=== PATIENT | male | born 1930 | race Caucasian/White ===

== ENCOUNTER 2020-02-05 14:44 | Inpatient (IN) | payer MEDICARE, OTHER, SELFPAY ==
[~2020-02-05] VITALS: Ht 180.3 cm; Wt 83.5 kg
--- NOTE | 2020-02-05 14:46 | NUR ---
BIBA TAKEN TO BED 1
--- NOTE | 2020-02-05 14:50 | NUR ---
BIBA FROM HOME C/O ALOC AND GENERALIZED WEAKNESS. PER GRANDSON, PT IS ALERT TO HIMSELF AND FAMILY, IS UNAWARE OF SURROUNDINGS AND IS GENERALLY CONFUSED. PT HAS WEAKNESS TO ARMS AND LEGS-UNABLE TO KEEP EXTREMITIES LIFTED FROM BED. GRANDSON STATES THAT PT HAD EPISODE OF INCONTINENCE WHILE AT HOME AND WAS UNABLE TO STAND FROM COUCH. PT ALERT TO VERBAL RESPONSE. PUPILS RESPONSIVE. ABDOMEN LARGE, BOWEL SOUNDS ACTIVE. PT RR 35 UPON ER ARRIVAL. PT ON 2 L NC AT 97% PMH- HTN, DM
--- NOTE | 2020-02-05 14:51 | NUR ---
PER GRANDSON, PT IS USUALLY AMBULATES INDEPENDENTLY, IS ABLE TO USE THE RESTROOM INDEPENDENTLY, AND IS A0X4
[2020-02-05 14:55] VITALS: BP 142/82
--- NOTE | 2020-02-05 15:00 | NUR ---
ACCU CHECK 173
[2020-02-05] MEDS ORDERED: NACL 0.9% 1,000 ML IV SCH (15:01)
[2020-02-05] MEDS ORDERED: cefTRIAXone 1,000 MG in DEXT 5% MINI-BAG PLUS 50 ML IV ONE (15:05)
--- NOTE | 2020-02-05 15:05 | NUR ---
labs drawn bedside, blood cultures collected
--- NOTE | 2020-02-05 15:35 | NUR ---
xray at bedside
--- NOTE | 2020-02-05 15:36 | NUR ---
# 14 FR Urinary catheter inserted utilizing sterile technique. Immediate return of 100 ml yellow urine noted. Urine sample collected and sent to lab. Pt tolerated procedure well.
[2020-02-05] MEDS ORDERED: cefTRIAXone 1,000 MG VIAL ONE (15:38)
[2020-02-05] MEDS ORDERED: SITA100T8 PO (15:46)
[2020-02-05] MEDS ORDERED: ABIR250T PO (15:46)
[2020-02-05] MEDS ORDERED: METF1000 PO (15:46)
[2020-02-05 15:47] LABS: BASOPHILS % (AUTO) 0.7 % (0.0-2.0); EOSINOPHILS % (AUTO) 0.1 % (0.0-4.0); HEMATOCRIT 39.1 % (36-52); HEMOGLOBIN 13.4 g/dL (12.0-18.0); LYMPHOCYTES # (AUTO) 0.3 K/uL (2.0-11.5); LYMPHOCYTES % (AUTO) 6.8 % (20.5-51.1); MEAN CORPUSCULAR HEMOGLOBIN 33 pg (27-31); MEAN CORPUSCULAR HGB CONC 34 g/dL (33-37); MONOCYTES # (AUTO) 0.9 K/uL (0.8-1.0); MONOCYTES % (AUTO) 18.6 % (1.7-9.3); NEUTROPHILS # (AUTO) 3.7 K/uL (1.8-7.7); NEUTROPHILS % (AUTO) 73.8 % (42.2-75.2); PLATELET COUNT (AUTO) 118 K/uL (140-450); RED BLOOD CELL COUNT(AUTO) 4.08 MIL/uL (4.20-6.10); RED CELL DISTRIBUTION WIDTH 13.7 % (11.6-13.7)
--- NOTE | 2020-02-05 15:50 | NUR ---
NACL BOLUS AND ROCPEHIN STARTED
[2020-02-05 16:02] LABS: ALBUMIN 3.3 g/dL (3.4-5.0); ANION GAP 14.4 (8-16); ASPARTATE AMINOTRANSFERASE 25 U/L (15-37); CARBON DIOXIDE 24.3 mmol/L (21-32); CHLORIDE 100 mmol/L (98-107); CREATININE 1.7 mg/dL (0.6-1.3); GLUCOSE 182 mg/dL (74-106); POTASSIUM 3.7 mmol/L (3.5-5.1); SODIUM SERUM 135 mmol/L (136-145); TOTAL BILIRUBIN 0.7 mg/dL (0.0-1.0); UREA NITROGEN, BLOOD 13 mg/dL (7-18)
--- NOTE | 2020-02-05 16:06 | NUR ---
NADR, PAIN O/10
--- NOTE | 2020-02-05 16:11 | NUR ---
LACTIC ACID 3.1, REPORTED TO DR MAGANA
[2020-02-05 16:29] LABS: APPEARANCE,URINE CLEAR (CLEAR); BILIRUBIN,URINE NEGATIVE (NEGATIVE); BLOOD, URINE NEGATIVE (NEGATIVE); COLOR,URINE YELLOW (YELLOW); LEUKOCYTE ESTERASE ,URINE NEGATIVE (NEGATIVE); NITRITE, URINE NEGATIVE (NEGATIVE); UGLUCOSE NEGATIVE (NEGATIVE)
--- NOTE | 2020-02-05 17:20 | NUR ---
PT RETURNED FROM CT VIA [facility]
--- NOTE | 2020-02-05 17:20 | NUR ---
ORAL TEMP 99.1
--- NOTE | 2020-02-05 17:21 | NUR ---
RR 25
--- NOTE | 2020-02-05 17:30 | NUR ---
SPOKE WITH PTS DAUGHTER DAVID [phone] AND GAVE UPDATE REGARDING PENDING HEAD CT AND ADMISSION
--- NOTE | 2020-02-05 17:39 | NUR ---
HELD THE PHONE TO PTS EAR WHILE HIS DAUGHTER SPOKE WITH HIM. PER DAUGHTER, HER FATHER IS SLIGHTLY CONFUSED AND IS NOT RESPONDING TO ALL OF HER QUESTIONS APPRORIATELY.
[2020-02-05] MEDS ORDERED: HYDROcodone/APAP 5/325 MG 1 TAB TAB PO PRN (17:40)
[2020-02-05] MEDS ORDERED: ACETAMINOPHEN 325 MG TAB PO PRN (17:40)
[2020-02-05] MEDS ORDERED: MORPHINE SULFATE 2 MG/ML SYR IVP PRN (17:40)
[2020-02-05] MEDS ORDERED: DOCUSATE SODIUM 100 MG GELCAP PO PRN (17:40)
[2020-02-05] MEDS ORDERED: ONDANSETRON 4 MG/2 ML VIAL IM/IVP PRN (17:40)
--- NOTE | 2020-02-05 18:15 | NUR ---
RECEIVED REPORT FROM ER NURSE WAQAS VIA SHU. PT TRANSFERRED TO [facility] BED, PT TOLERATED WELL, PT IS AAOX2, NO DISTRESS NOTED,IV SITES INTACT AND PATENT, SKIN INTACT, ORIENTED TO PT ROOM AND CALL LIGHT.SAFETY MEASURES IN PLACE, CALL LIGHT WITHIN REACH. WILL CONTINUE TO MONITOR.
--- NOTE | 2020-02-05 18:15 | NUR ---
Patient will be admitted to care of [facility]. Admited to TELE. Will go to room 129A. Belongings list completed. Report to VALENTE ARMENDARIZ.
--- NOTE | 2020-02-05 18:20 | NUR ---
Diego thompson in [facility] - 02/05/20 at 1821 by MEGAN SPOKE WITH DAVID, PTS DAUGHTER, AND INFORMED HER THAT HE WILL BE STAYING OVERNIGHT IN ROOM 129A
--- NOTE | 2020-02-05 18:22 | NUR ---
SPOKE WITH DAVID, PTS DAUGHTER, AND INFORMED HER THAT PT WILL BE STAYING OVERNIGHT IN ROOM 129A
--- NOTE | 2020-02-05 18:23 | NUR ---
SWAB PT FOR MRSA NARES, LABELLED AND SUBMITTED TO LAB FOR TESTING. VITAL SIGNS TAKEN AND PT IS STABLE. WILL CONTINUE TO MONITOR.
[2020-02-05] MEDS ORDERED: DEXTROSE 50% 50 ML SYR IVP PRN (19:10)
[2020-02-05] MEDS ORDERED: INSULIN LISPRO SLIDING SCALE 100 UNITS/ML VIAL SUBQ PRN (19:10)
--- NOTE | 2020-02-05 19:17 | NUR ---
RECEIVED PATIENT IN STABLE CONDITION FROM AM SHIFT FOR CONTINUITY OF CARE. PATIENT AAOX1-2, ABLE TO MAKE SIMPLE NEEDS KNOWN. RESPIRATIONS EVEN, UNLABORED. SKIN WARM, DRY AND INTACT. IV SITE TO RIGHT AC 20G PATENT/INTACT, INFUSING FLUIDS WELL. NO C/O PAIN. NO S/S ACUTE DISTRESS. PATIENT ORIENTED TO STAFF, ROOM AND CALL LIGHT. SAFETY PRECAUTIONS IN PLACE. ISOLATION PRECAUTIONS IN PLACE. CALL LIGHT IN REACH. WILL CONTINUE TO MONITOR.
--- NOTE | 2020-02-05 19:17 | NUR ---
ENDORSED PT TO NIGHT NURSE FOR CONTINUITY OF CARE. PT IS STABLE
[2020-02-05] MEDS: NACL 0.9% 1,000 ML IV SCH (19:30)
[2020-02-05 20:00] VITALS: BP 146/69
[2020-02-05 20:24] LABS: PROTHROMBIN TIME 11.3 secs (10.8-13.4)
[2020-02-05 20:27] LABS: MAGNESIUM 2.1 mg/dL (1.8-2.4)
[2020-02-05 20:28] LABS: PHOSPHORUS 2.9 mg/dL (2.5-4.9); THYROID STIMULATING HORMONE 0.34 uIU/mL (0.34-3.74)
[2020-02-05 20:45] LABS: LACTATE DEHYDROGENASE 230 U/L (85-227)
[2020-02-05] MEDS: BLOOD GLUCOSE MONITORING 1 DEV DEV FS SCH (21:12)
--- NOTE | 2020-02-05 21:15 | NUR ---
PATIENT ASLEEP AND IN STABLE CONDITION. REPOSITIONED FOR COMFORT. SAFETY PRECAUTIONS IN PLACE. CALL LIGHT IN REACH.
--- NOTE | 2020-02-05 23:20 | NUR ---
INCONTINENT CARE RENDERED WITH ELECTRONIC PAGINATION SYSTEM OPERATOR AT BEDSIDE. REPOSITIONED FOR COMFORT. NO C/O PAIN. NO S/S ACUTE DISTRESS. SAFETY PRECAUTIONS IN PLACE. ISOLATION PRECAUTIONS IN PLACE. CALL LIGHT WITHIN REACH.
[2020-02-06] VITALS: BP 132/72
--- NOTE | 2020-02-06 01:25 | NUR ---
MADE ROUNDS. PATIENT ASLEEP. NO S/S ACUTE DISTRESS. CALL LIGHT IN REACH. FREQUENT ROUNDS MADE BY STAFF.
--- NOTE | 2020-02-06 03:00 | NUR ---
PATIENT REPOSITIONED IN BED. INCONTINENT CARE RENDERED WITH SENIOR SOFTWARE DEVELOPMENT ENGINEER. CALL LIGHT WITHIN REACH. SAFETY PRECAUTIONS IN PLACE.
[2020-02-06 04:00] VITALS: BP 136/80
[2020-02-06] MEDS: NACL 0.9% 1,000 ML IV SCH (04:15)
--- NOTE | 2020-02-06 05:30 | NUR ---
SPOKE TO DAUGHTER DAVID ON THE PHONE AND GAVE HER AN UPDATE ON THE STATUS OF PATIENT. SHE SAID SHE WILL CALL IN THE AFTERNOON AFTER THE DOCTOR MAKES HIS ROUNDS. PATIENT IS CURRENTLY SLEEP AND IN STABLE CONDITION. NO C/O PAIN. NO S/S ACUTE DISTRESS. CALL LIGHT WITHIN REACH. SAFETY PRECAUTIONS IN PLACE.
[2020-02-06 06:26] LABS: BASOPHILS # (AUTO) 0.1 K/uL (0.00-0.22); BASOPHILS % (AUTO) 1.7 % (0.0-2.0); EOSINOPHILS % (AUTO) 0.1 % (0.0-4.0); HEMATOCRIT 36.7 % (36-52); HEMOGLOBIN 12.6 g/dL (12.0-18.0); LYMPHOCYTES # (AUTO) 1.2 K/uL (2.0-11.5); LYMPHOCYTES % (AUTO) 32.9 % (20.5-51.1); MEAN CORPUSCULAR HEMOGLOBIN 33 pg (27-31); MEAN CORPUSCULAR HGB CONC 34 g/dL (33-37); MEAN CORPUSCULAR VOLUME 95.9 fL (80-94); MONOCYTES # (AUTO) 0.9 K/uL (0.8-1.0); MONOCYTES % (AUTO) 23.6 % (1.7-9.3); NEUTROPHILS # (AUTO) 1.6 K/uL (1.8-7.7); NEUTROPHILS % (AUTO) 41.7 % (42.2-75.2); PLATELET COUNT (AUTO) 93 K/uL (140-450); RED BLOOD CELL COUNT(AUTO) 3.83 MIL/uL (4.20-6.10); RED CELL DISTRIBUTION WIDTH 13.8 % (11.6-13.7); WHITE BLOOD COUNT (AUTO) 3.7 K/uL (4.8-10.8)
[2020-02-06] MEDS: BLOOD GLUCOSE MONITORING 1 DEV DEV FS SCH ×4 (06:37→20:56)
[2020-02-06 07:00] LABS: ALBUMIN 2.8 g/dL (3.4-5.0); ANION GAP 16.8 (8-16); ASPARTATE AMINOTRANSFERASE 30 U/L (15-37); CARBON DIOXIDE 20.4 mmol/L (21-32); CHLORIDE 102 mmol/L (98-107); CREATININE 1.7 mg/dL (0.6-1.3); GLUCOSE 145 mg/dL (74-106); LACTATE DEHYDROGENASE 252 U/L (85-227); PHOSPHORUS 3.3 mg/dL (2.5-4.9); POTASSIUM 3.2 mmol/L (3.5-5.1); SODIUM SERUM 136 mmol/L (136-145); TOTAL BILIRUBIN 0.6 mg/dL (0.0-1.0); UREA NITROGEN, BLOOD 10 mg/dL (7-18)
--- NOTE | 2020-02-06 07:30 | NUR ---
RECEIVED PT FROM COMMERCIAL REAL ESTATE PARALEGAL NURSEARI, PT IS ASLEEP AND LYING ON THE BED WITH SIDE RAISL UP AND CALL LIGHT WITHIN REACH, PT IS ON DROPLET ISOLATION, IV LINE ON THE RT AC G. 20 WITH NS INFUSING AT 100ML/HR, INTACT, ON ROOM AIR, NO SIGN OF DISTRESS NOTED AND WILL MONITOR PT.
[2020-02-06 07:35] LABS: CHOL/HDL RATIO 3.6 (1-4.5); HDL CHOLESTEROL 29 mg/dL (40-60); LDL (CALC) 61 mg/dL (60-100); TRIGLYCERIDES 68 mg/dL (30-150)
[2020-02-06 08:00] VITALS: BP 130/77
[2020-02-06] MEDS: ENOXAPARIN 60 MG/0.6 ML SYR SUBQ SCH ×2 (08:16→20:56)
[2020-02-06] MEDS: metFORMIN 500 MG TAB PO SCH ×2 (08:18→16:56)
--- NOTE | 2020-02-06 08:18 | NUR ---
PT WAS GIVEN THE SCHEDULED AM MEDICATIONS, CRUSHED AND BEDSIDE SWALLOW EVALUATION DONE USING APPLE SAUCE AND WATER THROUGH A STRAW AND PT TOLERATED IT. WILL MONITOR PT.
[2020-02-06] MEDS ORDERED: LOVENOX 1MG/KG Q12H SUBQ SCH (09:00)
--- NOTE | 2020-02-06 10:02 | NUR ---
DATA MINING ANALYST NOTE: Basic Screen: Yes High Risk DC Screen Stella: DAVID MANUEL [place] Relationship: DAUGHTER Pre-Admission Living Arrangements: Lives with Other Prior ADL Independent Current Home Health Name/Tel: N/A Current DME/02 Name/Tel: N/A Current Hospice Name/Tel: N/A Current Dialysis Name/Tel: N/A Healthcare Decision Maker: Patient Advance Directive No Physician Orders for Life Sustaining Treatment Form No Patient/Family Have Educational Needs No Discipline: Case Mgt/Social Svcs Tentative Discharge Plan/Destination: No Needs Identified Will require assistance post discharge: No Referred to Conveyor Belt Repairer: No Tentative Discharge Plan Summary: PATIENT IS AN 89-YEAR-OLD MALE ADMITTED FOR ALOC AND COVID R/O. PATIENT HAS PMHX OF DM, PROSTATE CANCER, AND DIET CONTROLLED HYPERTENSION. PATIENT WAS ADMITTED FROM HOME WHERE HE LIVES WITH HIS FAMILY. SW CONTACTED DAVID MANUEL [phone] TO VERIFY DEMOGRAPHICS. PER DAVID, PATIENT IS COMPLETELY INDEPENDENT WITH ALL ADLS AND IS ALERT/ORIENTED AT BASELINE. DAVID REPORTS NO HISTORY OF MENTAL HEALTH AND SUBSTANCE ABUSE. TENTATIVE DISCHARGE PLAN IS FOR PATIENT IS TO RETURN HOME. NO FURTHER NEEDS IDENTIFIED. Signature: RE WATERMAN Date: Feb 06, 2020 Time: 10:01
--- NOTE | 2020-02-06 10:43 | NUR ---
PATIENT HAS BEEN SCREENED AND CATEGORIZED MODERATE NUTRITION RISK. PATIENT WILL BE SEEN WITHIN 3-5 DAYS OF ADMISSION. 02/08/20 02/10/[address]
--- NOTE | 2020-02-06 11:30 | NUR ---
BLOOD GLUCOSE CHECK DONE TO PT NOW AND RESULT IS 126 AND NO INSULIN COVERAGE NEEDED.
[2020-02-06 12:00] VITALS: BP 158/94
--- NOTE | 2020-02-06 12:30 | NUR ---
DISCHARGE PLANNING: THIS IS AN 89 Y/O MALE PATIENT FROM HOME, WHO CAM IN DUE TO GENERALIZED WEAKNESS WITH ALOC. PAST MEDICAL HISTORY INCLUDE DM, HTN, PROSTATE CA. INITIAL DIAGNOSIS OF ALOC. CURRENT LABS INCLUDE WBC 3.7, H/H 12.6/36.7, NA/K 136/3.2, BUN/CREA 10/1.7 AND D DIMER 3100. COVID TEST AND INF A AND B NEGATIVE. ON ROCEPHIN. MRSA NARES AND BLOOD CS PENDING. NO CONSULT AT THIS TIME. FOR SWALLOW EVAL. DC PLAN BACK TO HOME ONCE STABLE. Addendum: 02/07/20 at 1051 by Lynn Turcios TENTATIVE DC PLAN IS FOR TOMORROW WITH H/H FOR PT-PENDING PT EVALUATION. SPOKE TO PATIENT'S DAUGHTER DAVID MANUEL AT [phone] TO DISCUSS DC PLAN AND IS IN AGREEMENT. WHEN ASKED IF SHE HAS ANY PREFERENCE, SHE ANSWERED NO. SHE REQUESTED TO HAVE DR SHERIDAN CALL HER FOR UPDATES. PER DR. LEE, DR. SHERIDAN IS TALKING TO DR. GREEN AT THE MOMENT AND WILL HAVE HER CALL ME BACK. Addendum: 02/07/20 at 1146 by Lynn Turcios CM SPOKE TO JAYDE PATIENT COORDINATOR AT [facility]. SHE STATED FOR [facility], IT HAS TO BE FROM [facility]. CONTACTED KUMAR BECERRA OF [employer] AT [phone], NO ANSWER. PER VOICEMAIL SHE WILL BE ON VACATION FROM FEB 04 AND WILL BE BACK Jan AND TO CALL [phone] IF ASSISTANCE NEEDED FOR DISCHARGE PLANNING. CONTACTED THE PROVIDED NUMBER, ABLE TO SPEAK TO SYDNIE. INFORMED HER OF THE TENTATIVE DC PLAN. SHE STATED SHE WILL SEND ME OVER THEIR LIST OF CONTRACTED AGENCIES AND ONCE THEIR IS AN ACCEPTING TO LET THEM KNOW AND WILL PROVIDE AN AUTH. WILL AWAIT FOR THE FAX. Addendum: 02/07/20 at 1556 by Lynn Turcios CM [id number]: CONTACTED [facility] AT [phone], ABLE TO SPEAK TO, PROVIDED ME WITH THE FAX NUMBER. REFERRAL SENT TO [phone]. WILL FOLLOW UP. CONTACTED [facility] TO FOLLOW UP REFERRAL, ABLE TO SPEAK TO SANG NOYOLA. SHE CONFIRMED THAT THEY RECEIVED THE REFERRAL AND THEIR GENERAL PURCHASING AGENT IS STILL REVIEWING IT. SHE STATED SHE WILL CALL ME BACK IN 10-15 MINS. Addendum: 02/07/20 at 1626 by Lynn Turcios CM RECEIVED A CALL FROM [facility], STATING THAT THEY ARE NOT ABLE TO ACCEPT PATIENT DUE TO THEY DO NOT HAVE A NURSE AT THIS TIME. CONTACTED [employer] AT [phone], ABLE TO SPEAK TO JAYDE. SHE PROVIDED ME WITH THEIR FAX NUMBER [phone] TO SEND REFERRAL. REFERRAL SENT. WILL FOLLOW UP. REFERRAL SENT TO [facility]. WILL FOLLOW UP. Addendum: 02/08/20 at 1016 by Lynn Turcios CM RECEIVED A CALL FROM JAYDE OF [employer] REQUESTING 2 VISITS FOR INSURANCE TO APPROVE. CONTACTED ABEL ARREOLA, ABLE TO SPEAK TO SYDNIE, SHE STATED THEY WILL APPROVE 2 EVALS AND [address] [facility] MADE AWARE, AND OK WITH IT. Addendum: 02/08/20 at 1324 by Lynn Turcios CM CONTACTED JAS[facility] AT [phone], ABLE TO SPEAK TO LISANDRO, SHE STATED TO CALL THEM BACK IN AN HOUR FOR THE AUTH TO GENERATE. WILL FOLLOW UP. Addendum: 02/08/20 at 1402 by Lynn Turcios CM RECEIVED A CALL FROM [facility], STATING THAT SINCE THE PATIENT IS [employer] THEY ARE NOT ABLE TO PROVIDE AUTH AND NEED TO FAX REQUEST TO [phone] AND TO CALL [phone] OPT 4 OPT 4, OPT 2, OPT 2 AND OPT 2. CONTACTED THE PROVIDED NUMBER AND POSSIBLE COVID. CURRENT LABS INCLUDE WBC 14.1, H/H 8.2/25.2, NA/K 141/3.8, BUN/CREA 22/1.2, TROP 0.102, ALB 1.9, D DIMER >5000. COVID TEST PENDING. ETT TO VENT, FIO2 50%, O2 SAT 100%. SEDATED WITH PROPOFOL. ON LEVOPHED DRIP. ID AND PULMO/CRITICAL CARE CONSULTS IN PLACE. DC PLAN PENDING ON PATIENT'S RESPONSE TO TREATMENT. Addendum: 02/08/20 at 1411 by Lynn Turcios CM PREVIOUS DOCS WRONG ENTRY: RECEIVED A CALL FROM [facility], STATING THAT SINCE THE PATIENT IS [employer] THEY ARE NOT ABLE TO PROVIDE AUTH AND NEED TO FAX REQUEST TO [phone] AND TO CALL [phone] OPT 4 OPT 4, OPT 2, OPT 2 AND OPT 2. CONTACTED THE PROVIDED NUMBER, CALL GOT CUT OFF AFTER 28 MINS ON HOLD TRYING TO CONNECT TO A LIVE AGENT. Addendum: 02/08/20 at 1656 by Lynn Turcios CM LATE ENTRY: CONTACTED [facility] AGAIN, ON HOLD FOR 30 MINS TO CONNECT TO A LIVE AGENT AND CALL GOT CUT OFF. CONTACTED SYDNIE [facility]NE [facility] TO CHECK IF THEY HAVE ANY OTHER NUMBER TO CALL. SHE STATED THAT IS THE ONLY NUMBER THEY HAVE HOWEVER SHE WILL TRY TO CONNECT ME. PER SYDNIE SHE IS UNABLE TO TRANSFER THE CALL AND WILL SEND THEM AN EMAIL WITH MY CONTACT INFO. 8140: RECEIVED A CALL BACK FROM RAYA LA AUTH COORDINATOR AT [facility] [employer], TO CONFIRM THAT THEY RECEIVED THE ORDER AND REQUEST FOR HOME HEALTH. SHE STATED SHE WILL SUBMIT THE REQUEST, AND THEIR PROCESS WILL TAKE UP TO 24 HOURS. SHE STATED THAT SHE WILL CALL ME BACK WITH THE AUTH. WILL FOLLOW UP. Addendum: 02/09/20 at 0906 by Lynn Turcios CM RECEIVED A VOICE MESSAGE FROM SYDNIE [facility] TO PROVIDE AUTH [phone] FOR [facility]. SHE STATED THAT SHE PROVIDED IT TO JAYDE [facility]. RECEIVED A VOICE MESSAGE FROM JAYDE [facility], STATING THAT THEY RECEIVED THE AUTH FROM [employer].
--- NOTE | 2020-02-06 13:50 | NUR ---
SWALLOW EVALUATION IS BEING DONE TO PT NOW.
[2020-02-06] MEDS ORDERED: POTASSIUM CHLORIDE 10 MEQ TABER PO SCH (14:00)
--- NOTE | 2020-02-06 14:04 | NUR ---
ST CLARIFICATION NOTES PT'S ORAL-PHARYNGEAL SWALLOW APPEARS WFL C MS/THIN LIQUIDS CUP/STRAW OKAY, INTERMITTENT SUPERVISION BY NSG, TRAY SET-UP. NO FURTHER DYSPHAGIA F/U INDICATED. D/C SKILLED ST SERVICES AT THIS TIME. NSG TO MONITOR AND NOTIFY WIRELESS INTERNET INSTALLER OF CHANGES IN STATUS. RESULTS AND RECOMMENDATIONS D/W PT AND PT'S RNHOLLY. -ISAEL LEE MA, CCC-WIRELESS INTERNET INSTALLER
--- NOTE | 2020-02-06 14:15 | NUR ---
PT WAS ASSISTED TO THE BATHROOM AND HAD A BOWEL MOVEMENT AND ASSISTED BACK TO BED AND MADE COMFORTABLE, NO SIGN OF DISTRESS NOTED AND WILL MONITOR PT.
[2020-02-06] MEDS: DEXT 5% / NACL 0.45% 1,000 ML IV SCH (14:55)
[2020-02-06] MEDS ORDERED: POTASSIUM CHLORIDE 40 MEQ, LIDOCAINE MPF 1% 25 MG in NACL 0.9% 250 ML IV SCH (15:00)
--- NOTE | 2020-02-06 15:01 | NUR ---
PT WAS GIVEN IVPB ROCEPHIN NOW, WILL MONITOR PT.
--- NOTE | 2020-02-06 15:32 | NUR ---
PT WAS GIVEN POTASSIUM RIDER IV NOW FOR K LEVEL OF 3.2, WILL MONITOR PT.
[2020-02-06 16:00] VITALS: BP 127/91
--- NOTE | 2020-02-06 16:22 | NUR ---
PT WAS GIVEN INSULIN 2 UNITS IN THE ABDOMEN FOR THE BLOOD GLUCOSE OF 172, WILL MONITOR PT.
--- NOTE | 2020-02-06 16:57 | NUR ---
PT WAS GIVEN THE SCHEDULED MEDICATION, CRUSHED AND TOLERATED IT. WILL MONITOR PT.
--- NOTE | 2020-02-06 19:30 | NUR ---
RECIEVED PT AAOX1 TO 2 , CAN FOLLOW SIMPLE COMMAND - POOR HISTORIAN - NEEDS RE INFORCEMENT FROM TIME TO TIME , NID - O2 SAT WNL . SAFETY MEASURES IN PLACE - BED ALARM ON - CALL LIGHT WITHIN REACH . REMINDS HIM THE USE OF CALL LIGHT . ON TELE MONITOR . DENIES ANY PAIN AT6 THIS TIME . WILL CONT. TO MONITOR.
[2020-02-06 20:00] VITALS: BP 140/90
--- NOTE | 2020-02-06 22:00 | NUR ---
MADE ROUNDS , NO S/SX OF ACUTE DISTRESS NOTED AT THIS TIME , WILL CONT. TO MONITOR.
[2020-02-07] VITALS: BP 142/92
--- NOTE | 2020-02-07 | NUR ---
MADE ROUNDS , NO COMPLAIN MADE AT THIS TIME , ON TELE MONITOR - WILL CONT. TO MONITOR.
--- NOTE | 2020-02-07 02:00 | NUR ---
SLEEPING - CHEST RISE AND FALL EQUALLY , WILL CONT. TO MONITOR.
[2020-02-07 04:00] VITALS: BP 140/90
--- NOTE | 2020-02-07 04:35 | NUR ---
MADE ROUNDS , NO S/SX OF ACUTE DISTRESS NOTED AT THIS TIME . WILL CONT. TO MONITOR.
[2020-02-07] MEDS: BLOOD GLUCOSE MONITORING 1 DEV DEV FS SCH ×4 (06:00→21:00)
--- NOTE | 2020-02-07 06:00 | NUR ---
MADE ROUNDS , NO COMPLAIN MADE , RESTING ON BED COMFORTABLY .
[2020-02-07 06:11] LABS: BASOPHILS % (AUTO) 0.8 % (0.0-2.0); EOSINOPHILS % (AUTO) 0.6 % (0.0-4.0); HEMATOCRIT 35.8 % (36-52); HEMOGLOBIN 12.3 g/dL (12.0-18.0); LYMPHOCYTES # (AUTO) 1.2 K/uL (2.0-11.5); LYMPHOCYTES % (AUTO) 43.3 % (20.5-51.1); MEAN CORPUSCULAR HEMOGLOBIN 33 pg (27-31); MEAN CORPUSCULAR HGB CONC 35 g/dL (33-37); MEAN CORPUSCULAR VOLUME 96.1 fL (80-94); MONOCYTES # (AUTO) 0.7 K/uL (0.8-1.0); MONOCYTES % (AUTO) 25.5 % (1.7-9.3); NEUTROPHILS # (AUTO) 0.9 K/uL (1.8-7.7); NEUTROPHILS % (AUTO) 29.8 % (42.2-75.2); PLATELET COUNT (AUTO) 75 K/uL (140-450); RED BLOOD CELL COUNT(AUTO) 3.72 MIL/uL (4.20-6.10); RED CELL DISTRIBUTION WIDTH 13.9 % (11.6-13.7); WHITE BLOOD COUNT (AUTO) 2.8 K/uL (4.8-10.8)
[2020-02-07 06:18] LABS: MAGNESIUM 2.1 mg/dL (1.8-2.4); PHOSPHORUS 2.4 mg/dL (2.5-4.9)
[2020-02-07 06:28] LABS: ALBUMIN 2.6 g/dL (3.4-5.0); ANION GAP 10.3 (8-16); ASPARTATE AMINOTRANSFERASE 35 U/L (15-37); CARBON DIOXIDE 26.3 mmol/L (21-32); CHLORIDE 106 mmol/L (98-107); CREATININE 1.2 mg/dL (0.6-1.3); GLUCOSE 109 mg/dL (74-106); LACTATE DEHYDROGENASE 271 U/L (85-227); POTASSIUM 3.6 mmol/L (3.5-5.1); SODIUM SERUM 139 mmol/L (136-145); TOTAL BILIRUBIN 0.5 mg/dL (0.0-1.0); UREA NITROGEN, BLOOD 11 mg/dL (7-18)
--- NOTE | 2020-02-07 07:25 | NUR ---
ENDORSED TO AM SHIFT - PT - STABLE
--- NOTE | 2020-02-07 07:59 | NUR ---
TRANSFER OF CARE FROM GUEST SERVICES MANAGER RN TO DAY SHIFT RN. REPORT RECEIVED FROM KALA BREWSTER. PT IS SITTING UP IN BED EATING BREAKFAST. IV IN RT AC 2OG. IVPB RUNNING D5W 1/2 NS AT 40ML/HR. PT O2 SAT IS 97% ON RA. PT STATED HAD BM LAST NIGHT 02/06/20. SAFETY PRECAUTIONS INITIATED. TODAY'S OBJECTIVE: SAFETY AND INFECTION PREVENTION.
[2020-02-07 08:00] VITALS: BP 141/88
[2020-02-07] MEDS: metFORMIN 500 MG TAB PO SCH ×2 (08:17→16:40)
--- NOTE | 2020-02-07 08:20 | NUR ---
MEDS GIVEN AT THIS TIME. MEDS WERE CRUSHED AND MIXED IN WITH APPLE SAUCE. PT TOLERATED MED PASS WELL.
[2020-02-07] MEDS: ENOXAPARIN 60 MG/0.6 ML SYR SUBQ SCH (08:24)
--- NOTE | 2020-02-07 09:50 | NUR ---
ULTRASOUND VENOUS OF BILATERAL LOWER EXTREMITY IS BEING DONE TO PT NOW.
--- NOTE | 2020-02-07 11:40 | NUR ---
BLOOD GLUCOSE CHECK DONE TO PT AND RESULT IS 98 AND NO INSULIN COVERAGE NEEDED. WILL MONITOR PT.
[2020-02-07 12:00] VITALS: BP 146/98
[2020-02-07] MEDS: DEXT 5% / NACL 0.45% 1,000 ML IV SCH (13:54)
--- NOTE | 2020-02-07 15:09 | NUR ---
PT WAS GIVEN IVPB ROCEPHIN NOW, WILL MONITOR PT.
[2020-02-07 16:00] VITALS: BP 159/85
--- NOTE | 2020-02-07 16:25 | NUR ---
TOLERATED INCENTIVE SPIROMETRY THERAPY WELL WITHOUT INCIDENT ENCOURAGED PATIENT TO US INCENTIVE SPIROMETRY EVERY 1-2 HOURS WHILE AWAKE
--- NOTE | 2020-02-07 16:40 | NUR ---
PT'S BLOOD GLUCOSE WAS CHECKED AND IS 117 AND NO INSULIN COVERAGE NEEDED, ORAL MEDICATION WAS GIVEN , CRUSHED, TOLERATED AND WILL MONITOR PT.
--- NOTE | 2020-02-07 19:13 | NUR ---
EDORSED PT TO [facility] SHIFT NURSE FOR CONTINUITY OF CARE, PT IS STABLE AT THIS TIME.
--- NOTE | 2020-02-07 19:13 | NUR ---
RECEIVED PT AAOX1 TO 2 - NID - O2 SAT WNL . FALL RISK - WILL PUT ON BED ALARM ON . RA , DENIES ANY PAIN . SAFETY MEASURES IN PLACE . CALL LIGHT WITHIN REACH . PLAN OF CARE DISCUSSED BUT POOR UNDERSTANDING DUE TO MENTAL STATUS . IV SITE INTACT AND PATENT . WILL CONT. TO MONITOR.
[2020-02-08] VITALS: BP 152/88
--- NOTE | 2020-02-08 | NUR ---
MADE ROUNDS - NO S/SX OF ACUTE DISTRESS NOTED AT THIS TIME . WILL CONT. TO MONITOR
--- NOTE | 2020-02-08 02:00 | NUR ---
SLEEPING - CHEST RISE AND FALL EQUALLY.
[2020-02-08 04:00] VITALS: BP 134/90
--- NOTE | 2020-02-08 04:00 | NUR ---
MADE ROUNDS , NO S/SX OF ACUTE DISTRESS NOTED AT THIS TIME.
[2020-02-08 05:59] LABS: BASOPHILS % (AUTO) 0.3 % (0.0-2.0); EOSINOPHILS % (AUTO) 0.4 % (0.0-4.0); HEMATOCRIT 37.7 % (36-52); HEMOGLOBIN 12.8 g/dL (12.0-18.0); LYMPHOCYTES # (AUTO) 1.9 K/uL (2.0-11.5); LYMPHOCYTES % (AUTO) 46.2 % (20.5-51.1); MEAN CORPUSCULAR HEMOGLOBIN 33 pg (27-31); MEAN CORPUSCULAR HGB CONC 34 g/dL (33-37); MEAN CORPUSCULAR VOLUME 96.4 fL (80-94); MONOCYTES % (AUTO) 23.4 % (1.7-9.3); NEUTROPHILS # (AUTO) 1.2 K/uL (1.8-7.7); NEUTROPHILS % (AUTO) 29.7 % (42.2-75.2); PLATELET COUNT (AUTO) 88 K/uL (140-450); RED BLOOD CELL COUNT(AUTO) 3.91 MIL/uL (4.20-6.10); RED CELL DISTRIBUTION WIDTH 13.7 % (11.6-13.7); WHITE BLOOD COUNT (AUTO) 4.2 K/uL (4.8-10.8)
--- NOTE | 2020-02-08 06:00 | NUR ---
MADE ROUNDS , NO COMPLAIN MADE , NO S/SX OF ACUTE DISTRESS NOTED .
[2020-02-08 06:30] LABS: ANION GAP 11.3 (8-16); CARBON DIOXIDE 27.9 mmol/L (21-32); CHLORIDE 105 mmol/L (98-107); CREATININE 1.2 mg/dL (0.6-1.3); GLUCOSE 100 mg/dL (74-106); POTASSIUM 3.2 mmol/L (3.5-5.1); SODIUM SERUM 141 mmol/L (136-145); UREA NITROGEN, BLOOD 10 mg/dL (7-18)
--- NOTE | 2020-02-08 06:40 | NUR ---
ASSESS SL / IV SITE - FLUSH W/ NSS W/ RESISTANCE - PT . WITHDRAW HIS ARM WHEN I'M TRYING TO FLUSH THE SL - WILL ENDORSE - PER AM NURSE YESTERDAY SAID THE PLAN OF CARE IS POSSIBLE HOME TODAY . AND THE DAUGTHER KNOWS HER FATHER POSSIBLE HOME TODAY .
[2020-02-08 06:46] LABS: MAGNESIUM 2.1 mg/dL (1.8-2.4); PHOSPHORUS 2.4 mg/dL (2.5-4.9)
--- NOTE | 2020-02-08 07:25 | NUR ---
RECEIVED REPORT FROM COMBINER OPERATOR NURSE. PT IS CURRENTLY LAYING IN BED ASLEEP WITH NO NO SIGNS OF DISTRESS NOTED. PT IS ALERT ORIENTATED TO PERSON AND PLACE. RESPIRATIONS ARE EVEN AND UNLABORED ON ROOM AIR. SKIN IS INTACT WITH IV PATENT, ASYMPTOMATIC, AND INFUSING PER ORDER. SAFETY MEASURES IN PLACE, BED IS IN LOW SEMI-FOWLERS POSITION, CALL LIGHT WITHIN REACH AND WILL CONTINUE TO MONITOR.
--- NOTE | 2020-02-08 07:25 | NUR ---
ENDORSED TO AM SHIFT - PT - STABLE , WILL ASK TO BRITT IF PT HAVE TO RE INSERT NEW IV - FOR POSSIBLE HOME TODAY . Addendum: 02/08/20 at 0747 by Diana Cisneros RN INFORM AM NURSE - THE RESIDENTS ARE IN CONFERENCE - JUST FOLLOW UP IF FOR RE INSERTION OF IV CANULLA - JUST WAIT THE DISPOSITION OF DR. ALCANTARA AFTER THE DOCTORS' ROUNDS .
[2020-02-08] MEDS: BLOOD GLUCOSE MONITORING 1 DEV DEV FS SCH (07:30)
[2020-02-08 08:00] VITALS: BP 150/88
[2020-02-08] MEDS: metFORMIN 500 MG TAB PO SCH (09:00)
--- NOTE | 2020-02-08 09:08 | NUR ---
ADMINISTERED MEDICATIONS AND PATIENT TOLERATED WELL WITH NO SIGNS OF DISTRESS. BREAKFAST IS AT BEDSIDE. PT STATES THAT HE WANTS TO GO HOME. SAFETY MEASURES IN PLACE AND WILL CONTINUE TO MONITOR.
--- NOTE | 2020-02-08 09:12 | NUR ---
HEPARIN WAS HELD DUE TO LOW PLATELET COUNT.
[2020-02-08] MEDS ORDERED: SITA50TA3 PO (10:23)
[2020-02-08] MEDS ORDERED: APIX2.5 PO (10:23)
--- NOTE | 2020-02-08 10:50 | NUR ---
PT IS CURRENTLY GETTING READY FOR DISCHARGE. DAUGHTER HAS BEEN INFORMED AND WILL COME TO COLLEGE ADMISSIONS COUNSELOR HER FATHER. SAFETY MEASURES IN PLACE AND WILL CONTINUE TO MONITOR.
[2020-02-08] MEDS ORDERED: SODIUM PHOS / POTASSIUM PHOS 1 PKT PDR PO SCH (11:00)
[2020-02-08] MEDS ORDERED: POTASSIUM CHLORIDE 10 MEQ TABER PO SCH (11:00)
[2020-02-08 11:05] VITALS: BP 150/88
--- NOTE | 2020-02-08 12:20 | NUR ---
PT HAS BEEN DISCHARGED TO HOME, ESCORTED OFF OF UNIT VIA GURNEY. RESPIRATIONS ARE CLEAR AND UNLABORED ON ROOM AIR WITH NO SIGNS OF DISTRESS. VITAL SIGNS ARE WITHIN NORMAL RANGE. SKIN IS INTACT, IV HAS BEEN TAKEN OUT WITH LUMEN INTACT AND MINIMAL BLOOD LOSS. ID BANDS HAVE BEEN REMOVED, BELONGINGS WERE TAKEN WITH PATIENT. DISCHARGE TEACHING, MEDICATIONS ADHERENCE, AND MD FOLLOW UP HAS BEEN EXPLAINED TO DAUGHTER. DAUGHTER VERBALIZED UNDERSTANDING AND HAD NO FURTHER QUESTIONS.
== END 2020-02-08 12:20 | disposition home or self-care (01) | DRG 70 ==
LOC: MED 14:44 → EEVIPCON 14:44 → MMU 17:39
PROVIDERS: ADMIT General Practice; ATTEND General Practice
DX: G93.41 Metabolic encephalopathy (principal); N17.0 Acute kidney failure with tubular necrosis; R65.11 Systemic inflammatory response syndrome (SIRS) of non-infectious origin with acute organ dysfunction; E43 Unspecified severe protein-calorie malnutrition; D68.59 Other primary thrombophilia; E87.1 Hypo-osmolality and hyponatremia; J98.11 Atelectasis; E87.2 Acidosis; E11.9 Type 2 diabetes mellitus without complications; E87.6 Hypokalemia; E83.39 Other disorders of phosphorus metabolism; D72.819 Decreased white blood cell count, unspecified; I10 Essential (primary) hypertension; Z85.46 Personal history of malignant neoplasm of prostate; Z98.49 Cataract extraction status, unspecified eye; Z03.818 Encounter for observation for suspected exposure to other biological agents ruled out; Z68.25 Body mass index [BMI] 25.0-25.9, adult
CPT/HCPCS: 36415; 70450; 71045; 80048; 80053; 81003; 82140; 82550; 82728; 82948; 83036; 83605; 83615; 83690; 83735; 83880; 84100; 84443; 84484; 85025; 85379; 85610; 85651; 85730; 86140; 87040; 87081; 87804; 92610; 93005; 93970; 93971; 96365; 97110; 97112; 97116; 97161-GP; 97530; 99285; J0696; J1644; J1650; J1815; J2001; J3480; J7030; J7060; Q0092; U0003-CS